=== PATIENT | male | born 1950 | race Caucasian/White ===

== ENCOUNTER 2023-10-17 13:52 | Outpatient (CLI) | payer OTHER, SELFPAY | END 2023-10-17 13:53 | disposition home or self-care (01) | PROVIDERS: Visit Provider Physician Assistant | DX: R60.0 Localized edema (principal); G20.A1 Parkinson's disease without dyskinesia, without mention of fluctuations; Z01.89 Encounter for other specified special examinations | CPT/HCPCS: 93970 ==